=== PATIENT | female | born 1970 | race Caucasian/White ===

== ENCOUNTER 2024-01-31 07:05 | Outpatient (CLI) | payer OTHER, SELFPAY ==
--- NOTE | ~2024-01-31 | MM_ITS ---
EXAMINATION: MM screening eric BI w you HISTORY: Screening TECHNIQUE: Craniocaudal and mediolateral oblique 3-D tomosynthesis images were obtained and synthetic 2-D images were generated. CAD analysis was submitted and interpreted. COMPARISON: No prior mammogram is available for comparison at this institution. BREAST PARENCHYMAL COMPOSITION: Dense: The breasts are extremely dense, which lowers the sensitivity of mammography. FINDINGS: There are breast asymmetries in the lower inner quadrant of the right breast and lower cent ral aspect of the left breast. There are no suspicious calcifications. IMPRESSION: 1. Bilateral breast asymmetries. 2. Recommend correlation with prior outside mammograms. BI-RADS CATEGORY 0 - INCOMPLETE STUDY, NEED ADDITIONAL IMAGING EVALUATION. Reviewed, dictated and finalized at location B.
== END 2024-01-31 07:06 | disposition home or self-care (01) ==
LOC: ANHIMG 07:08
PROVIDERS: PCP Family Medicine; Visit Provider Family Medicine
DX: Z12.31 Encounter for screening mammogram for malignant neoplasm of breast (principal); R92.30 Dense breasts, unspecified; N64.89 Other specified disorders of breast
CPT/HCPCS: 77063; 77067